=== PATIENT | male | born 1995 | race Caucasian/White ===

== ENCOUNTER 2016-07-13 08:47 | Emergency (ER) | payer BC, OTHER ==
[~2016-07-13] VITALS: Ht 177.8 cm; Wt 82.6 kg
[2016-07-13 09:19] LABS: BASOPHILS % (AUTO) 0 % (0-10); EOSINOPHILS % (AUTO) 0 % (0-10); LYMPHOCYTES # (AUTO) 1.1 X 10^3 (1.0-4.0); LYMPHOCYTES % (AUTO) 12 % (12-44); MEAN CORPUSCULAR HEMOGLOBIN 30 PG (25-34); MEAN CORPUSCULAR HGB CONC 35 G/DL (32-36); MEAN CORPUSCULAR VOLUME 86 FL (80-99); MEAN PLATELET VOLUME 9.7 FL (7.4-10.4); MONOCYTES # (AUTO) 0.9 X 10^3 (0.0-1.0); MONOCYTES % (AUTO) 9 % (0-12); NEUTROPHILS # (AUTO) 7.4 X 10^3 (1.8-7.8); NEUTROPHILS % (AUTO) 79 % (42-75); PLATELET COUNT 175 10^3/uL (130-400); RED BLOOD COUNT 5.29 10^6/uL (4.35-5.85); RED CELL DISTRIBUTION WIDTH 12.4 % (10.0-14.5); WHITE BLOOD COUNT 9.4 10^3/uL (4.3-11.0)
[2016-07-13] MEDS ORDERED: LACTATED RINGERS 1,000 ML IV ONE (09:29)
[2016-07-13] MEDS ORDERED: NS 100 ML (IVPB) BAG IV ONE (09:30)
[2016-07-13] MEDS ORDERED: IOHEXOL 350 MG/ML 100 ML (OMNIPAQUE 350) VIAL IV ONE (09:30)
[2016-07-13] MEDS ORDERED: CATHETER FLUSH 10 ML SYR IV PRN (09:30)
[2016-07-13 09:43] LABS: ALANINE AMINOTRANSFERASE 32 U/L (0-55); AMYLASE 55 U/L (25-125); ANION GAP 16 MMOL/L (5-14); ASPARTATE AMINO TRANSFERASE 25 U/L (5-34); BILIRUBIN,TOTAL 0.8 MG/DL (0.1-1.0); BLOOD UREA NITROGEN 11 MG/DL (7-18); BUN/CREATININE RATIO 9; CALCIUM 9.9 MG/DL (8.5-10.1); CARBON DIOXIDE 23 MMOL/L (21-32); CHLORIDE 105 MMOL/L (98-107); CREATININE SERUM 1.27 MG/DL (0.60-1.30); GFR ESTIMATED > 60; GLUCOSE 92 MG/DL (70-105); LIPASE 25 U/L (8-78); SODIUM 144 MMOL/L (135-145); TOTAL PROTEIN 8.1 G/DL (6.4-8.2)
--- NOTE | 2016-07-13 09:48 | ED GI ---
General Chief Complaint: Abdominal/GI Problems Stated Complaint: BLOOD IN STOOL,STOMACH PAIN Nursing Triage Note: PT AMBULATED TO ROOM 08 WITH COMPLAINTS OF ABD PAIN WITH DIARRHEA STARTING ON MONDAY. [facility]. PT ALSO STATES HE SEES A LITTLE BLOOD IN HIS STOOL. Sepsis Screen: Possible Sepsis Risk Source of Information: Patient History of Present Illness Time Seen By Provider: 09:10 Initial Comments PT STATES HE BEGAN TO FEEL A LITTLE ILL ON Monday07/10/16 HAS HAD NAUSEA, NO VOMITING HAD SOME SLIGHT ABDOMINAL CRAMPING ON MONDAY, BUT WORSE SINCE LAST NIGHT HAS HAD DIARRHEA SINCE YESTERDAY, AND HAS HAD 4 STOOLS SINCE MIDNIGHT--THE LAST 2 HAD A SMALL AMOUNT OF BLOOD MIXED WITH STOOL CRAMPING COMES AND GOES--STARTS BEFORE HE HAS DIARRHEA, THEN SLOWLY GOES AWAY AFTER HE HAS A STOOL. THINKS HE MIGHT HAVE HAD A MILD FEVER [facility] AM, ADN WAS SENT HERE NO KNOWN SICK CONTACTS NO SUSPICIOUS FOODS ATE GRILLED [facility] LAST PM AROUND 1800 HAD WATER THIS AM STATES HE FEELS FINE NOW AND HAS NO SYMPTOMS AT THIS TIME PCP: NONE Allergies and Home Medications Allergies Coded Allergies: No Known Drug Allergies (Unverified , 07/13/16) Home Medications No Active Prescriptions or Reported Meds Review of Systems Constitutional: see HPI EENTM: No Symptoms Reported Respiratory: No Symptoms Reported Cardiovascular: No Symptoms Reported Gastrointestinal: See HPI, Abdominal Pain, Diarrhea, Nausea, Poor Appetite, Denies Poor Fluid Intake, Rectal Bleeding, Denies Vomiting Genitourinary: No Symptoms Reported Musculoskeletal: no symptoms reported Skin: no symptoms reported Psychiatric/Neurological: No Symptoms Reported Endocrine: No Symptoms Reported Hematologic/Lymphatic: No Symptoms Reported Past Vptxmrd-Koayhv-Fteukh Hx Patient Social History Alcohol Use: Occasionally Uses Recreational Drug Use: No Smoking Status: Never a Smoker Recent Foreign Travel: No Contact w/Someone Who Travel: No Recent Infectious Disease Expo: No Recent Hopitalizations: No Surgeries HX Surgeries: No Respiratory Hx Respiratory Disorders: No Cardiovascular Hx Cardiac Disorders: No Neurological Hx Neurological Disorders: No Reproductive System Hx Reproductive Disorders: No Genitourinary Hx Genitourinary Disorders: No Gastrointestinal Hx Gastrointestinal Disorders: No Musculoskeletal Hx Musculoskeletal Disorders: No Endocrine Hx Endocrine Disorders: No HEENT HX ENT Disorders: No Cancer Hx Cancer: No Psychosocial Hx Psychiatric Problems: No Integumentary HX Skin/Integumentary Disorder: No Physical Exam Vital Signs VS - Last 72 Hours, by Label 07/13/16 08:54 Temp 98.6 Pulse 94 Resp 16 B/P (MAP) 151/82 Pulse Ox 98 Capillary Refill : Less Than 3 Seconds General Appearance: WD/WN, no apparent distress, other (DOES NOT APPEAR ILL) HEENT: PERRL/EOMI Neck: normal inspection Respiratory: normal breath sounds, no respiratory distress, no accessory muscle use Cardiovascular: regular rate, rhythm, no murmur Gastrointestinal: non tender, soft, no organomegaly, no pulsatile mass, abnormal bowel sounds (HYPER ACTIVE) Extremities: normal inspection Back: normal inspection 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, no motor/sensory deficits, alert, normal mood/affect, oriented x 3 Skin: normal color, warm/dry Progress/Results/Core Measures Results/Orders Lab Results Laboratory Tests Test 07/13/16 09:05 07/13/16 09:50 Range/Units White Blood Count 9.4 4.3-11.0 10^3/uL Red Blood Count 5.29 4.35-5.85 10^6/uL Hemoglobin 15.8 13.3-17.7 G/DL Hematocrit 45 40-54 % Mean Corpuscular Volume 86 80-99 FL Mean Corpuscular Hemoglobin 30 25-34 PG Mean Corpuscular Hemoglobin Concent 35 32-36 G/DL Red Cell Distribution Width 12.4 10.0-14.5 % Platelet Count 175 130-400 10^3/uL Mean Platelet Volume 9.7 7.4-10.4 FL Neutrophils (%) (Auto) 79 H 42-75 % Lymphocytes (%) (Auto) 12 12-44 % Monocytes (%) (Auto) 9 0-12 % Eosinophils (%) (Auto) 0 0-10 % Basophils (%) (Auto) 0 0-10 % Neutrophils # (Auto) 7.4 1.8-7.8 X 10^3 Lymphocytes # (Auto) 1.1 1.0-4.0 X 10^3 Monocytes # (Auto) 0.9 0.0-1.0 X 10^3 Eosinophils # (Auto) 0.0 0.0-0.3 10^3/uL Basophils # (Auto) 0.0 0.0-0.1 10^3/uL Sodium Level 144 135-145 MMOL/L Potassium Level 4.0 3.6-5.0 MMOL/L Chloride Level 105 98-107 MMOL/L Carbon Dioxide Level 23 21-32 MMOL/L Anion Gap 16 H 5-14 MMOL/L Blood Urea Nitrogen 11 7-18 MG/DL Creatinine 1.27 0.60-1.30 MG/DL Estimat Glomerular Filtration Rate > 60 BUN/Creatinine Ratio 9 Glucose Level 92 70-105 MG/DL Calcium Level 9.9 8.5-10.1 MG/DL Total Bilirubin 0.8 0.1-1.0 MG/DL Aspartate Amino Transf (AST/SGOT) 25 5-34 U/L Alanine Aminotransferase (ALT/SGPT) 32 0-55 U/L Alkaline Phosphatase 62 40-136 U/L Total Protein 8.1 6.4-8.2 G/DL Albumin 5.0 H 3.2-4.5 G/DL Amylase Level 55 25-125 U/L Lipase 25 8-78 U/L My Orders Orders - EDGAR HART DO Saline Lock/Iv-Start (07/13/16 09:11) Amylase (07/13/16 09:11) Cbc With Automated Diff (07/13/16:11) Comprehensive Metabolic Panel (07/13/16:11) Lipase (07/13/16:11) Ua Culture If Indicated (07/13/16 09:11) Ct Abdomen/Pelvis W (07/13/16 09:11) Acute Abd Series (07/13/16 09:11) Iohexol Injection (Omnipaque 350 Mg/Ml 1 (07/13/16 09:30) Sodium Chloride Flush (Catheter Flush Sy (07/13/16 09:30) Ns (Ivpb) (Sodium Chloride 0.9% Ivpb Bag (07/13/16 09:30) Saline Lock/Iv-Start (07/13/16 09:29) Lactated Ringers (Lr 1000 Ml Iv Solution (07/13/16 09:29) Medications Given in ED Current Medications Medications Dose Ordered Sig/Missael Route Start Time Stop Time Status Last Admin Dose Admin Iohexol 100 ml ONCE ONCE IV 07/13/16 09:30 07/13/16 09:31 DC 07/13/16 09:36 100 ML Lactated Ringer's 1,000 ml @ 0 mls/hr Q0M ONCE IV 07/13/16 09:29 07/13/16 09:30 DC 07/13/16 09:50 1,000 MLS/HR Sodium Chloride 10 ml NEEDED PRN IV 07/13/16 09:30 07/13/16 09:36 10 ML Sodium Chloride 100 ml ONCE ONCE IV 07/13/16 09:30 07/13/16 09:31 DC 07/13/16 09:36 80 ML Vital Signs/I&O Vital Sign - Last 12Hours 07/13/16 08:54 Temp 98.6 Pulse 94 Resp 16 B/P (MAP) 151/82 Pulse Ox 98 Blood Pressure Mean: 105 Progress Note : Progress Note NO SYMPTOMS OF ANY KIND DURING ER STAY Diagnostic Imaging Comments ACUTE ABDOMEN XRAYS--NON-SPECIFIC BOWEL GAS PATTERN CT ABDOMEN/PELVIS--COLITIS RECTOSIGMOID AND DESCENDING COLON PER RADIOLOGIST REPORTS @ 1012 Reviewed: Reviewed by Me Departure Impression Impression: Primary Impression: GASTROENTERITIS AND COLITIS Disposition: HOME, SELF-CARE Condition: Stable Departure-Patient Inst. Referrals: NO,LOCAL PHYSICIAN (PCP) Primary Care Physician Patient Instructions: [id number], Microscopic Colitis Add. Discharge Instructions: CLEAR LIQUIDS--WATER, BROTH, JELLO, GATORADE BRATS DIET--BANANAS, RICE, APPLESAUCE, TOAST, SALTINES FOLLOW UP WITH DR OF CHOICE IN 2-3 DAYS IF NO BETTER, RETURN TO ER IF WORSE All discharge instructions reviewed with patient and/or family. Voiced understanding. Scripts Hyoscyamine Sulfate (Levsin-Sl) 0.125 Mg Tab.subl 1-2 TAB SL Q4H for Abdominal Pain, #10 TAB Prov: JOSE ELIAS HARTA K DO 07/13/16 Ondansetron (Zofran Odt) 4 Mg Tab.rapdis 4 MG PO Q4H for Nausea/Vomiting, #5 TAB Prov: JOSE ELIAS HARTA K DO 07/13/16 Lactobacillus Acidophilus (Acidophilus) 1 Each Capsule 2 EACH PO QID, #80 CAP Prov: TANNERJOSE ELIASA K DO 07/13/16 TANNEREDGAR K DO July 13, 2016 09:48
--- NOTE | 2016-07-13 09:57 | Diagnostic Imaging Report ---
Acute abdominal series. INDICATION: Severe abdominal pain and fever. FINDINGS: The lungs are clear. The heart size is normal. No effusion or pneumothorax. The mediastinum and mari appear unremarkable. No pneumoperitoneum is seen. Nonspecific air-fluid levels in the mid abdomen are noted within nondilated small bowel loops. Contrast in the renal collecting system from recent CT scan is seen. IMPRESSION: Nonspecific air-fluid levels in the mid abdomen seen. No pneumoperitoneum or dilated bowel loops to suggest obstruction. Dictated by: Dictated on workstation # [id number]
[2016-07-13 10:00] LABS: BILIRUBIN,URINE NEGATIVE (NEGATIVE); KETONES,URINE 4+ (NEGATIVE); LEUKOCYTE ESTERASE ,URINE NEGATIVE (NEGATIVE); NITRITE,URINE NEGATIVE (NEGATIVE); PH,URINE 6 (5-9); PROTEIN,URINE NEGATIVE (NEGATIVE); UROBILINOGEN,URINE NORMAL (NORMAL)
--- NOTE | 2016-07-13 10:07 | Diagnostic Imaging Report ---
PROCEDURE: CT abdomen and pelvis with contrast. TECHNIQUE: Multiple contiguous axial images were obtained through the abdomen and pelvis after administration of intravenous contrast. INDICATION: Severe abdominal pain. Fever. Nausea. 100 mL of Omnipaque 350 is administered intravenously. Findings: The lung bases appear clear. The liver, the gallbladder, the spleen, the pancreas, and the adrenal glands appear unremarkable. The kidneys have symmetric enhancement and contrast excretion. There is no hydronephrosis. There is a thickening and enhancement in the rectum and the descending colon likely related to infectious or inflammatory colitis. There is slight fluid distention with air-fluid level in the distal ileal loops. This could be reactive to the adjacent inflammation in the colon or reflective of ileitis as well. Tiny amount of free fluid seen in the pelvis. The urinary bladder appear unremarkable. There is no abscess. No free fluid or fluid collection is seen in the abdomen or pelvis. There is minimal prominence mesenteric lymph nodes seen. The abdominal aorta is normal in caliber. No para-aortic significantly enlarged lymph nodes seen. The osseous structures appear unremarkable. IMPRESSION: Thickening in the rectum and descending colon suggestive of colitis which could be infectious or inflammatory. Changes in an adjacent ileal loop could be reactive from the adjacent colonic inflammation or representing mild ileitis. Dictated by: Dictated on workstation # [id number]
[2016-07-13 10:11] LABS: SQUAMOUS EPITHELIAL CELL,UR RARE /HPF; WBC,URINE RARE /HPF
[2016-07-13] MEDS ORDERED: ONDA4TAB8 PO (10:19)
[2016-07-13] MEDS ORDERED: LACT1CAP8 PO (10:19)
[2016-07-13] MEDS ORDERED: HYOS0.1283 SL (10:19)
[2016-07-13 10:25] VITALS: BP 138/74
== END 2016-07-13 10:25 | disposition home or self-care (01) ==
LOC: ER 08:51
DX: K52.9 Noninfective gastroenteritis and colitis, unspecified (principal)
CPT/HCPCS: 36415; 74022; 74177; 80053; 81000; 82150; 83690; 85025; 96360